=== PATIENT | female | born 1970 | race Caucasian/White ===

== ENCOUNTER 2017-02-06 15:28 | Inpatient (IN) | payer OTHER ==
[~2017-02-06] VITALS: Ht 162.6 cm; Wt 59.4 kg
--- NOTE | ~2017-02-06 | EKG ---
[place] [address] [facility] [place] [address] ELECTROCARDIOGRAM REPORT Name: ROJAS HAWK Room #: 442-P ADM IN M.R.#: [id number] Admission: 02/06/17 Attend Phys: Sarthak Blanca DO Discharge: Date of : 68 Report #: [id number] THIS REPORT FOR: //name// [facility] ED Test Date: 2017-02-06 Test Time: 15:45:47 Pat Name: ROJAS HAWK Department: Room: 442 Gender: F Facility Service Manager: MATT : 1970 Requested By: Jez Akers Order Number: [id number] MD: Patrice Kong Measurements Intervals [place] Rate: 83 P: 72 NE: 141 QRS: 48 QRSD: 98 T: 46 QT: 366 QTc: 430 Interpretive Statements Sinus rhythm Minimal ST depression, anterolateral leads Baseline wander in lead(s) II,aVR,aVF No previous ECG available for comparison Electronically Signed On 02-07-2017 9:06:03 CDT by Patrice Kong [email or web address] <ELECTRONICALLY SIGNED> By: Patrice Kong MD, [facility] 02/07/17 0906 [id number] 1545 Patrice Kong MD, [facility] /EPI
[2017-02-06 15:31] VITALS: BP 128/71
[2017-02-06 16:07] LABS: HEMATOCRIT 24.2 % (37.0-47.0); HEMOGLOBIN 7.5 gm/dL (12.0-15.0); MANUAL DIFF YES; MCH 18.8 pg (26.0-34.0); MCHC 30.8 g/dL (28.0-37.0); MCV 61.1 fL (80.0-100.0); PLATELET COUNT 347 thou/uL (150-400); RBC 3.96 mil/uL (4.20-5.00); RDW 18.6 % (10.5-14.5); WBC 7.2 thou/uL (4.0-11.0)
[2017-02-06 16:17] LABS: ANION GAP 8 mmol/L (7-16); BUN 9 mg/dL (7-18); CHLORIDE 104 mmol/L (98-107); CO2 25 mmol/L (21-32); CREATININE 0.7 mg/dL (0.6-1.0); GLUCOSE 105 mg/dL (74-106); POTASSIUM 3.5 mmol/L (3.5-5.1); SODIUM 137 mmol/L (136-145)
[2017-02-06 16:23] LABS: APTT 20.3 Seconds (24.5-32.8); PROTIME 10.1 Seconds (9.3-11.4)
[2017-02-06 16:26] LABS: TROPONIN-I < 0.04 ng/mL (<0.04-0.07)
[2017-02-06 16:35] LABS: ANISOCYTOSIS 3+; NUCLEATED RBCS 1 /100WBC; TOTAL CELL COUNT 100
[2017-02-06 16:36] LABS: HYPOCHROMASIA 2+; MICROCYTES 3+; POLYCHROMASIA SLIGHT; SCHISTOCYTES FEW
[2017-02-06 17:21] VITALS: BP 116/72
[2017-02-06 18:09] LABS: OBSERVED RETIC COUNT 1.4 % (0.6-2.6)
[2017-02-06 18:15] LABS: % SATURATION 2 % (20-39); IRON 11 ug/dL (50-170); TIBC 442 ug/dL (250-450); UIBC 431 ug/dL
[2017-02-06 19:19] VITALS: BP 109/67
[2017-02-06 20:50] VITALS: BP 113/72
[2017-02-07] VITALS (7 sets, daily range): BP systolic 93–118; BP diastolic 50–68
[2017-02-07 05:51] LABS: HEMATOCRIT 22.4 % (37.0-47.0); WBC 7.3 thou/uL (4.0-11.0)
[2017-02-07 05:54] LABS: ABSOLUTE NEUTROPHILS 3.6 thou/uL (1.4-8.2); BASOPHILS 0.8 % (0.0-2.0); EOSINOPHILS 1.4 % (0.0-3.0); HEMOGLOBIN 6.6 gm/dL (12.0-15.0); LYMPHOCYTES 37.4 % (24.0-44.0); MCH 18.4 pg (26.0-34.0); MCHC 29.4 g/dL (28.0-37.0); MCV 62.5 fL (80.0-100.0); MONOCYTES 10.4 % (1.0-8.0); PLATELET COUNT 276 thou/uL (150-400); RBC 3.59 mil/uL (4.20-5.00); RDW 18.6 % (10.5-14.5)
[2017-02-07 05:55] LABS: MANUAL DIFF NO
[2017-02-07 05:58] LABS: CALCIUM 8.4 mg/dL (8.5-10.1); CREATININE 0.7 mg/dL (0.6-1.0); POTASSIUM 3.8 mmol/L (3.5-5.1)
[2017-02-07 07:52] LABS: ANISOCYTOSIS 2+; HYPOCHROMASIA 3+; MICROCYTES 3+
[2017-02-07] MEDS ORDERED: IRON325 PO (08:18)
[2017-02-07] MEDS ORDERED: COLACE100 MG PO (08:18)
== END 2017-02-07 20:29 | disposition home or self-care (01) | DRG 812 ==
LOC: ER 15:28 → 4S 17:17 → EROBS 17:17 → 4S 19:21
PROVIDERS: Emergency Medicine; Family Medicine
PROC: 30233N1 Transfusion of Nonautologous Red Blood Cells into Peripheral Vein, Percutaneous Approach (ICD-10-PCS; principal; 2017-02-07)
DX: D50.9 Iron deficiency anemia, unspecified (principal); N92.0 Excessive and frequent menstruation with regular cycle; Z86.718 Personal history of other venous thrombosis and embolism; Z79.01 Long term (current) use of anticoagulants; Z88.2 Allergy status to sulfonamides; Z91.040 Latex allergy status
CPT/HCPCS: 10100